=== PATIENT | male | born 1970 | race American Indian/Alaskan Native ===

== ENCOUNTER 2018-05-23 18:19 | Emergency (ER) | payer MEDICARE ==
[2018-05-23 18:30] VITALS: BP 144/83
[2018-05-23 23:19] LABS: Basophils # (Auto) 0.1 K/mm3 (0.0-0.1); Basophils % (Auto) 0.6 % (0.0-1.8); Eosinophils # (Auto) 0.1 K/mm3 (0.0-0.4); Eosinophils % (Auto) 0.8 % (0.0-4.3); Hemoglobin 13.1 gm/dl (11.8-15.2); Lymphocytes % (Auto) 31.6 % (13.4-35.0); Mean Corpuscular HGB Conc 33 % (32-34); Mean Corpuscular Hemoglobin 29 pg (28-32); Mean Corpuscular Volume 89 fl (84-94); Monocytes # (Auto) 0.7 K/mm3 (0.0-0.8); Monocytes % (Auto) 6.8 % (0.0-7.3); Platelet Count 214 K/mm3 (140-440); Red Blood Count 4.51 M/mm3 (3.65-5.03); Red Cell Distribution Width 15.8 % (13.2-15.2)
[2018-05-23 23:24] LABS: BUN/Creatinine Ratio 16; Blood Urea Nitrogen 18 mg/dL (9-20); Calcium 9.8 mg/dL (8.4-10.2); Hemolysis Index 5
--- NOTE | 2018-05-24 02:23 | Emergency Department Report ---
ED Psych HPI - General Chief Complaint: Psych Stated Complaint: [facility] Time Seen by Provider: 05/24/18 02:02 Source: patient Mode of arrival: Ambulatory - History of Present Illness Initial Comments: Mr. Serrato is a 47-year-old male with history of schizophrenia. He was recently released from [facility] facility. He desires to return to [facility] for reassessment. [facility]. He desired medication to help him sleep. He has not taking any medications since discharge. He was unable to obtain these medications. NO SI NO HI MD Complaint: other (insomnia) -: week(s) (since discharge from [facility] 2 weeks ago) Associated Psychiatric Symptoms: racing thoughts History of same: Yes Quality: constant Improves With: none Worsens With: none Context: not taking psychiatric Associated Symptoms: insomnia - Related Data Allergies Allergy/AdvReac Type Severity Reaction Status Date / Time bupropion [From Wellbutrin] Allergy Unknown Verified 05/23/18 18:25 fluphenazine [From Prolixin] Allergy Unknown Verified 05/23/18 18:25 haloperidol [From Haldol] Allergy Unknown Verified 05/23/18 18:25 olanzapine [From Zyprexa] Allergy Unknown Verified 05/23/18 18:25 ziprasidone [From Geodon] Allergy Unknown Verified 05/23/18 18:25 ED Review of Systems ROS: Stated complaint: [facility] Other details as noted in HPI Comment: All other systems reviewed and negative Constitutional: denies: fever, malaise Respiratory: denies: cough Cardiovascular: denies: chest pain Psychiatric: denies: auditory hallucinations, visual hallucinations, homicidal thoughts, suicidal thoughts ED Past Medical Hx - Past Medical History Additional medical history: Schizophrenia - Social History Smoking Status: Current Every Day Smoker Substance Use Type: Marijuana ED Physical Exam - General Limitations: No Limitations General appearance: alert, in no apparent distress - Head Head exam: Present: atraumatic, normocephalic - Eye Eye exam: Present: normal appearance - ENT ENT exam: Present: mucous membranes moist - Neck Neck exam: Present: normal inspection. Absent: tenderness, meningismus - Respiratory Respiratory exam: Present: normal lung sounds bilaterally. Absent: respiratory distress, wheezes, rales, rhonchi - Cardiovascular Cardiovascular Exam: Present: regular rate, normal rhythm, normal heart sounds. Absent: systolic murmur, diastolic murmur, rubs, gallop - GI/Abdominal GI/Abdominal exam: Present: soft, normal bowel sounds. Absent: distended, tenderness, guarding, rebound - Rectal Rectal exam: Present: deferred - Extremities Exam Extremities exam: Present: normal inspection - Back Exam Back exam: Present: normal inspection - Neurological Exam Neurological exam: Present: alert, oriented X3 - Psychiatric Psychiatric exam: Present: normal affect, normal mood, other (pressured speech, disorganized thought process, gives a full history in calm manner). Absent: homicidal ideation, suicidal ideation - Skin Skin exam: Present: warm, dry, intact, normal color. Absent: rash ED Course Vital Signs 05/23/18 05/24/18 18:26 04:33 Temperature 99.1 F Pulse Rate 69 Respiratory 16 20 Rate Blood Pressure 144/83 O2 Sat by Pulse 99 99 Oximetry ED Medical Decision Making - Lab Data Result diagrams: 05/23/18 22:40 05/23/18 22:40 Vital Signs - 24 hr 05/23/18 18:26 Temperature 99.1 F Pulse Rate 69 Respiratory 16 Rate Blood Pressure 144/83 O2 Sat by Pulse 99 Oximetry Laboratory Results - last 24 hr 05/23/18 05/23/18 05/23/18 22:40 22:40 22:40 WBC RBC Hgb Hct MCV MCH MCHC RDW Plt Count Lymph % (Auto) [place] % (Auto) Eos % (Auto) Baso % (Auto) Lymph # [place] # Eos # Baso # Seg Neutrophils % Seg Neutrophils # Sodium 137 Potassium 4.3 Chloride 96.1 L Carbon Dioxide 27 Anion Gap 18 BUN 18 Creatinine 1.1 Estimated GFR > 60 BUN/Creatinine Ratio 16 Glucose 106 H Calcium 9.8 Salicylates < 0.3 L Acetaminophen < 5.0 L Plasma/Serum Alcohol 05/23/18 05/23/18 22:40 22:40 WBC 9.6 RBC 4.51 Hgb 13.1 Hct 40.0 MCV 89 MCH 29 MCHC 33 RDW 15.8 H Plt Count 214 Lymph % (Auto) 31.6 [place] % (Auto) 6.8 Eos % (Auto) 0.8 Baso % (Auto) 0.6 Lymph # 3.0 [place] # 0.7 Eos # 0.1 Baso # 0.1 Seg Neutrophils % 60.2 Seg Neutrophils # 5.8 Sodium Potassium Chloride Carbon Dioxide Anion Gap BUN Creatinine Estimated GFR BUN/Creatinine Ratio Glucose Calcium Salicylates Acetaminophen Plasma/Serum Alcohol < 0.01 Laboratory Results - last 24 hr 05/23/18 05/23/18 05/23/18 22:40 22:40 22:40 WBC RBC Hgb Hct MCV MCH MCHC RDW Plt Count Lymph % (Auto) [place] % (Auto) Eos % (Auto) Baso % (Auto) Lymph # [place] # Eos # Baso # Seg Neutrophils % Seg Neutrophils # Sodium 137 Potassium 4.3 Chloride 96.1 L Carbon Dioxide 27 Anion Gap 18 BUN 18 Creatinine 1.1 Estimated GFR > 60 BUN/Creatinine Ratio 16 Glucose 106 H Calcium 9.8 Urine Color Urine Turbidity Urine pH Ur Specific [place] Urine Protein Urine Glucose (UA) Urine Ketones Urine Blood Urine Nitrite Urine Bilirubin Urine Urobilinogen Ur Leukocyte Esterase Urine WBC (Auto) Urine RBC (Auto) Urine Mucus Salicylates < 0.3 L Urine Opiates Screen Urine Methadone Screen Acetaminophen < 5.0 L Ur Barbiturates Screen Ur Phencyclidine Scrn Ur Amphetamines Screen U Benzodiazepines Scrn Urine Cocaine Screen U Marijuana (THC) Screen Drugs of Abuse Note Plasma/Serum Alcohol 05/23/18 05/23/18 05/24/18 22:40 22:40 02:30 WBC 9.6 RBC 4.51 Hgb 13.1 Hct 40.0 MCV 89 MCH 29 MCHC 33 RDW 15.8 H Plt Count 214 Lymph % (Auto) 31.6 [place] % (Auto) 6.8 Eos % (Auto) 0.8 Baso % (Auto) 0.6 Lymph # 3.0 [place] # 0.7 Eos # 0.1 Baso # 0.1 Seg Neutrophils % 60.2 Seg Neutrophils # 5.8 Sodium Potassium Chloride Carbon Dioxide Anion Gap BUN Creatinine Estimated GFR BUN/Creatinine Ratio Glucose Calcium Urine Color Yellow Urine Turbidity Clear Urine pH 5.0 Ur Specific [place] 1.023 Urine Protein <15 mg/dl Urine Glucose (UA) Neg Urine Ketones Neg Urine Blood Neg Urine Nitrite Neg Urine Bilirubin Neg Urine Urobilinogen 2.0 Ur Leukocyte Esterase Neg Urine WBC (Auto) 1.0 Urine RBC (Auto) 1.0 Urine Mucus Few Salicylates Urine Opiates Screen Urine Methadone Screen Acetaminophen Ur Barbiturates Screen Ur Phencyclidine Scrn Ur Amphetamines Screen U Benzodiazepines Scrn Urine Cocaine Screen U Marijuana (THC) Screen Drugs of Abuse Note Plasma/Serum Alcohol < 0.01 05/24/18 02:30 WBC RBC Hgb Hct MCV MCH MCHC RDW Plt Count Lymph % (Auto) [place] % (Auto) Eos % (Auto) Baso % (Auto) Lymph # [place] # Eos # Baso # Seg Neutrophils % Seg Neutrophils # Sodium Potassium Chloride Carbon Dioxide Anion Gap BUN Creatinine Estimated GFR BUN/Creatinine Ratio Glucose Calcium Urine Color Urine Turbidity Urine pH Ur Specific [place] Urine Protein Urine Glucose (UA) Urine Ketones Urine Blood Urine Nitrite Urine Bilirubin Urine Urobilinogen Ur Leukocyte Esterase Urine WBC (Auto) Urine RBC (Auto) Urine Mucus Salicylates Urine Opiates Screen Presumptive negative Urine Methadone Screen Presumptive negative Acetaminophen Ur Barbiturates Screen Presumptive negative Ur Phencyclidine Scrn Presumptive negative Ur Amphetamines Screen Presumptive negative U Benzodiazepines Scrn Presumptive negative Urine Cocaine Screen Presumptive negative U Marijuana (THC) Screen Presumptive positive Drugs of Abuse Note Disclamer Plasma/Serum Alcohol - Medical Decision Making Mr. Serrato is a 47-year-old male with history of schizophrenia. His main concern is insomnia. He is very upset with his living situation. He no longer wants to live at the [facility]. He desires to be reassessed at [facility]. No acute psychosis other than possible delusional thought pattern. He denies suicidal or homicidal ideation. He denies hallucinations. He does not meet criteria for 1013. He does need access to medication. Awaiting mental health evaluation for further recommendations. He does not appear to be a harm to himself or others. He is medically clear for psychiatric care. Our mental health engineering recruiter evaluated Mr. Serrato. He agrees that Mr. Serrato does not require emergent psychiatric inpatient care. Mr. Serrato is very displeased with his current accommodations. Our mental health team will attempt to place Mr. Serrato at [facility] or [facility] for PHP, partial hospitalization program for supportive residential care. Critical care attestation.: If time is entered above; I have spent that time in minutes in the direct care of this critically ill patient, excluding procedure time. ED Disposition Clinical Impression: Schizophrenia, Insomnia Disposition: DC/TX-70 ANOTHER TYPE HLTHCARE Is pt being admited?: No Does the pt Need Aspirin: No Condition: Stable Referrals: PRIMARY CARE, [Primary Care Provider] - 3-5 Days
[2018-05-24 03:04] LABS: Bilirubin,Urine NEG (Negative); Blood,Urine NEG (Negative); Color,Urine Yellow (Yellow); Mucus,Urine FEW /HPF; Protein,Urine <15 mg/dL mg/dL (Negative)
[2018-05-24 03:15] LABS: Amphetamine Screen,Urine PRESUMPTIVE NEGATIVE; Benzodiazepines Screen,Urine PRESUMPTIVE NEGATIVE; Cocaine Screen,Urine PRESUMPTIVE NEGATIVE; Methadone Screen,Urine PRESUMPTIVE NEGATIVE; Opiate Screen,Urine PRESUMPTIVE NEGATIVE
[2018-05-24 03:28] LABS: Cannabinoid Screen,Urine PRESUMPTIVE POSITIVE
== END 2018-05-24 05:39 | disposition home or self-care (01) ==
LOC: ED 18:19
DX: G47.00 Insomnia, unspecified (principal); F20.9 Schizophrenia, unspecified; F17.200 Nicotine dependence, unspecified, uncomplicated; F12.10 Cannabis abuse, uncomplicated; Z88.2 Allergy status to sulfonamides; Z88.7 Allergy status to serum and vaccine; Z88.8 Allergy status to other drugs, medicaments and biological substances; Z79.899 Other long term (current) drug therapy
CPT/HCPCS: 36415; 80048; 80307; 81001; 85025; 99284; G0480; 80320

== ENCOUNTER 2018-06-06 21:48 | Emergency (ER) | payer MEDICARE ==
[2018-06-06 22:04] VITALS: BP 119/73
[2018-06-06 23:53] LABS: Basophils # (Auto) 0.1 K/mm3 (0.0-0.1); Basophils % (Auto) 0.9 % (0.0-1.8); Eosinophils % (Auto) 0.3 % (0.0-4.3); Hematocrit 44.7 % (35.5-45.6); Hemoglobin 14.6 gm/dl (11.8-15.2); Lymphocytes # (Auto) 3.7 K/mm3 (1.2-5.4); Mean Corpuscular HGB Conc 33 % (32-34); Mean Corpuscular Hemoglobin 30 pg (28-32); Mean Corpuscular Volume 90 fl (84-94); Monocytes # (Auto) 0.6 K/mm3 (0.0-0.8); Monocytes % (Auto) 5.9 % (0.0-7.3); Platelet Count 287 K/mm3 (140-440); Red Blood Count 4.96 M/mm3 (3.65-5.03); Red Cell Distribution Width 15.8 % (13.2-15.2)
--- NOTE | 2018-06-07 00:15 | Emergency Department Report ---
ED Psych HPI - General Chief Complaint: Psych Stated Complaint: MH Time Seen by Provider: 06/06/18 23:55 Source: patient Mode of arrival: Ambulatory - History of Present Illness Initial Comments: Patient is a 47-year-old male that presents to the emergency room for referral to a new mental health program. Patient states she was a chronic time an echo and doesn't like that program. Patient states that he wants a referral to a new one. Patient denies suicidal ideation. Patient denies homicidal ideation. Patient denies verbal and audio hallucinations. Patient denies physical complaints. Patient denies chest pain shortness of breath. Patient denies abdominal pain. Patient denies fever or chills. Patient states he is not taking psychiatric medications. She is very hyperverbal at this time. Patient denies depression anxiety. -: Gradual Associated Psychiatric Symptoms: racing thoughts, delusions History of same: Yes Quality: constant Improves With: medication, therapy Worsens With: none Context: significant life stressor Associated Symptoms: denies: confusion, headache, shortness of breath, nausea, vomiting, syncope, insomnia Treatments Prior to Arrival: none - Related Data Home Medications Medication Instructions Recorded Confirmed Last Taken Unobtainable 06/07/18 06/07/18 Unknown Allergies Allergy/AdvReac Type Severity Reaction Status Date / Time bupropion [From Wellbutrin] Allergy Unknown Verified 05/23/18 18:25 fluphenazine [From Prolixin] Allergy Unknown Verified 05/23/18 18:25 haloperidol [From Haldol] Allergy Unknown Verified 05/23/18 18:25 olanzapine [From Zyprexa] Allergy Unknown Verified 05/23/18 18:25 ziprasidone [From Geodon] Allergy Unknown Verified 05/23/18 18:25 ED Review of Systems ROS: Stated complaint: MH Other details as noted in HPI Constitutional: denies: chills, fever Eyes: denies: eye pain, eye discharge, vision change ENT: denies: ear pain, throat pain Respiratory: denies: cough, shortness of breath, wheezing Cardiovascular: denies: chest pain, palpitations Endocrine: no symptoms reported Gastrointestinal: denies: abdominal pain, nausea, diarrhea Genitourinary: denies: urgency, dysuria Musculoskeletal: denies: back pain, joint swelling, arthralgia Skin: denies: rash, lesions Neurological: denies: headache, weakness, paresthesias Psychiatric: denies: anxiety, depression Hematological/Lymphatic: denies: easy bleeding, easy bruising ED Past Medical Hx - Past Medical History Previous Medical History?: Yes Hx Psychiatric Treatment: Yes (Schizophrenia) Additional medical history: Schizophrenia - Surgical History Past Surgical History?: No - Family History Family history: no significant - Social History Smoking Status: Current Every Day Smoker Substance Use Type: None - Medications Home Medications: Home Medications Medication Instructions Recorded Confirmed Last Taken Type Unobtainable 06/07/18 06/07/18 Unknown History ED Physical Exam - General Limitations: No Limitations General appearance: alert, in no apparent distress - Head Head exam: Present: atraumatic, normocephalic - Eye Eye exam: Present: normal appearance - ENT ENT exam: Present: mucous membranes moist - Neck Neck exam: Present: normal inspection - Respiratory Respiratory exam: Present: normal lung sounds bilaterally. Absent: respiratory distress - Cardiovascular Cardiovascular Exam: Present: regular rate, normal rhythm. Absent: systolic murmur, diastolic murmur, rubs, gallop - GI/Abdominal GI/Abdominal exam: Present: soft, normal bowel sounds - Rectal Rectal exam: Present: deferred - Extremities Exam Extremities exam: Present: normal inspection - Back Exam Back exam: Present: normal inspection - Neurological Exam Neurological exam: Present: alert, oriented X3 - Psychiatric Psychiatric exam: Present: flat affect - Expanded Psychiatric Exam Expanded Focused psych exam: Present: pressured speech, delusional, flight of ideas - Skin Skin exam: Present: warm, dry, intact, normal color. Absent: rash ED Course Vital Signs 06/06/18 21:53 Temperature 98.3 F Pulse Rate 84 Respiratory 18 Rate Blood Pressure 119/73 O2 Sat by Pulse 98 Oximetry - Reevaluation(s) Reevaluation #1: We'll have mental health evaluate patient 06/07/18 00:15 Reevaluation #2: Mental health agrees the patient is stable for outpatient referral and rehabilitation and mental health programs. Patient to be discharged home. Patient is stable to be discharged. Patient given all the discharge instructions. He agrees with plan of care. 06/07/18 00:49 ED Medical Decision Making - Lab Data Result diagrams: 06/06/18 23:15 06/06/18 23:15 - Medical Decision Making 47-year-old male that presented to emergency for evaluation for a referral to a mental health program. Patient is stable. Patient cleared by mental health. Patient will be discharged home to follow-up with mental health programs and psychiatrist and his primary care. - Differential Diagnosis schizo. dep. anx. hyperverbal Critical care attestation.: If time is entered above; I have spent that time in minutes in the direct care of this critically ill patient, excluding procedure time. ED Disposition Clinical Impression: Schizophrenia Qualifiers: Schizophrenia type: unspecified Qualified Code(s): F20.9 - Schizophrenia, unspecified Disposition: DC-01 TO HOME OR SELFCARE Is pt being admited?: No Does the pt Need Aspirin: No Condition: Stable Instructions: Schizophrenia (ED) Additional Instructions: Patient is to follow-up with primary care in 3-5 days. Patient to follow up with psychiatry in 3-5 days. Patient to use out mental health programs that were provided to him. Patient to return to ER if condition worsens. Referrals: ASHLEY CALDERON MD [Other] - 3-5 Days Time of Disposition: 00:50
[2018-06-07 00:21] LABS: BUN/Creatinine Ratio 11; Blood Urea Nitrogen 14 mg/dL (9-20); Calcium 10.3 mg/dL (8.4-10.2); Hemolysis Index 6
== END 2018-06-07 01:08 | disposition home or self-care (01) ==
LOC: EEVIPCON 21:48 → ED 21:48
DX: F22 Delusional disorders (principal); F20.9 Schizophrenia, unspecified; F17.200 Nicotine dependence, unspecified, uncomplicated; Z88.2 Allergy status to sulfonamides; Z88.8 Allergy status to other drugs, medicaments and biological substances
CPT/HCPCS: 36415; 80048; 85025; 99283; G0480; 80320